=== PATIENT | female | born 1970 | race Caucasian/White ===

== ENCOUNTER 2018-01-27 16:34 | Inpatient (IN) | payer OTHER ==
[~2018-01-27] VITALS: Ht 172.7 cm; Wt 84.8 kg
--- NOTE | 2018-01-27 16:50 | ED GENERAL ADULT ---
History of Present Illness General Chief Complaint: General Adult Stated Complaint: PT IS HERE FROM [facility] FOR [facility] DURHAM Source: patient Exam Limitations: no limitations Vital Signs & Intake/Output Vital Signs & Intake/Output Vital Signs Date Time Temp Pulse Resp B/P B/P Pulse O2 O2 Flow FiO2 Mean Ox Delivery Rate 01/27 1946 98.1 85 18 102/58 97 Room Air 01/27 1945 98.1 85 18 102/58 01/27 1804 Room Air 01/27 1803 75 18 100/60 Room Air 01/27 1745 75 18 100/60 01/27 1637 98.4 73 18 89/69 96 Room Air Room Air Allergies Coded Allergies: strawberry (Intermediate, DIARRHEA 01/27/18) Triage Note: PT TO ED FOR [facility], PT ARRIVES TO TRIAGE NOTED WITH YELLOW SCLERA, AND SKIN. BLOODWORK INCLUDING AMMONIA DRAWN IN TRIAGE. Triage Nurses Notes Reviewed? yes Onset: Abrupt Duration: day(s): Timing: recent history HPI: 47 year old female presents to the emergency department from [facility] for retention of fluids from the abdomin to her feet. She states this has been getting worse over the past 2 weeks. She did have an endoscopy that revieled 5 ulcers. She is been [facility] for 5 days and feels as though her symptoms are worsening. Past History Travel History Traveled to [place] past 21 day No Medical History Any Pertinent Medical History? see below for history Neurological: SEIZURE X 2, "DETOXING MYSELF". 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 No Review of Systems Review of Systems Constitutional: Reports: see HPI. Denies: fever. EENTM: Reports: no symptoms. Denies: blurred vision, double vision, visual changes. Respiratory: Reports: no symptoms. Denies: short of breath. Cardiovascular: Reports: see HPI, edema. Denies: chest pain. GI: Reports: see HPI, bloating, distention. Genitourinary: Reports: no symptoms. Musculoskeletal: Reports: no symptoms. Skin: Reports: see HPI, jaundice. Neurological/Psychological: Reports: no symptoms. Hematologic/Endocrine: Reports: no symptoms. Immunologic/Allergic: Reports: no symptoms. Physical Exam Physical Exam General Appearance: alert, awake, anxious Head: normal appearance, active bleeding Eyes: Bilateral: normal appearance, PERRL, EOMI, other (JAUNDICE). Ears, Nose, Throat: normal ENT inspection Neck: full range of motion Respiratory: lungs clear Cardiovascular: regular rate/rhythm Peripheral Pulses: 4+ radial (R), 4+ radial (L) Gastrointestinal: distention, tenderness Back: normal inspection Extremities: pedal edema Neurologic/Psych: no motor/sensory deficits, awake, alert, oriented x 3 Skin: jaundice Core Measures ACS in differential dx? No CVA/TIA Diagnosis: No Sepsis Present: No Sepsis Focused Exam Completed? No Progress Differential Diagnoses I considered the following diagnoses in my evaluation of the patient: [ Spontaneous bacterial peritonitis, intra-abdominal infection, pancreatitis, alcoholic hepatitis, hepatic encephalopathy, hypoalbuminemia,] Plan of Care: Orders Procedure Date/time Status Regular Diet 01/28 B Active Patient Data 01/27 1931 Active BLOOD CULTURE 01/[address] ABD & PELVIS W IV CONTRAST 01/27 1922 Active ED Holding Orders 01/27 1910 Active Admit to inpatient 01/27 1910 Active Vital Signs 01/27 1910 Active Code Status 01/27 1910 Active Intake & Output 01/27 1741 Active Add-on Test (ER Only) 01/27 1711 Active PARTIAL THROMBOPLASTIN TIME 01/27 1645 Complete PROTHROMBIN TIME 01/27 1645 Complete CIWA 01/27 1644 Active URINE DRUGS OF ABUSE 01/27 1644 Complete AMMONIA 01/27 1644 Complete MAGNESIUM 01/27 1644 Complete HEPATIC FUNCTION PANEL 01/27 1644 Complete ETHANOL 01/27 1644 Complete CBC WITHOUT DIFFERENTIAL 01/27 164 Complete BASIC METABOLIC PANEL 01/27 1644 Complete Laboratory Tests 01/27/18 1940: Urine Opiates Screen < 100, Methadone Screen < 40, Barbiturate Screen < 60, Ur Phencyclidine Scrn < 6.00, Amphetamines Screen < 100, U Benzodiazepines Scrn < 85, Urine Cocaine Screen < 50, Urine Cannabis Screen < 5.00 01/27/18 1645: Anion Gap 8, Estimated GFR > 60, BUN/Creatinine Ratio 12.5, Glucose 104 H, Calcium 7.5 L, Magnesium 2.2, Total Bilirubin 15.5 H, Direct Bilirubin 13.9 H , AST 92 H, ALT 45, Alkaline Phosphatase 289 H, Ammonia 33 H, Total Protein 4.8 L, Albumin 2.1 L, PT 22.0 H, INR 2.00 H, APTT 36, CBC w Diff MAN DIFF ORDERED, RBC 3.37 L, MCV 102.8 H, MCH 34.3 H, MCHC 33.3, RDW 21.3 H, MPV 8.9 , Segmented Neutrophils 79 H, Band Neutrophils 5, Lymphocytes 7 L, Monocytes 9 , Platelet Estimate VERIFIED BY SMEAR, Anisocytosis 1+, Target Cells FEW, Fld Total RBCs Counted 100, Serum Alcohol < 10.0 01/27/18 1644: APTT Cancelled Microbiology 01/27 1950 BLOOD: Blood Culture - RECD 01/28 1940 BLOOD: Blood Culture - RECD Initial ED EKG: none Departure Departure Disposition: STILL A PATIENT Condition: Stable Clinical Impression Primary Impression: Alcoholic hepatitis Secondary Impressions: Coagulopathy, Liver failure Referrals: Patient Has No Primary Care Dr (PCP/Family) Departure Forms: Customer Survey General Discharge Information Admission Note Spoke With: Vernon Mulligan MD Documentation of Exam: Documentation of any treatments & extenuating circumstances including Concerns Regarding Discharge (functional status, medication knowledge or non-compliance, living conditions, etc.) that warrant an admission rather than observation: [The patient needs admission for IV antiemetics, IV fluids, GI consultation, further imaging studies, review of her medication list-it is unclear why she is clinically deteriorating despite abstinence.] Critical Care Note Critical Care Note Critical Care Time: non-applicable
[2018-01-27 17:02] LABS: HEMATOCRIT 34.7 % (37-47); MEAN CORPUSCULAR HGB 34.3 PG (27.0-31.0); MEAN CORPUSCULAR HGB CONC 33.3 G/DL (33.0-37.0); MEAN CORPUSCULAR VOLUME 102.8 FL (81.0-99.0); MEAN PLATELET VOLUME 8.9 FL (7.4-10.4); PLATELET COUNT 233 /CUMM (130-400); RBC DISTRIBUTION WIDTH 21.3 % (11.5-14.5); RED BLOOD CELL CT 3.37 /CUMM (4.20-5.40); WHITE BLOOD CELL COUNT 22.3 /CUMM (4.8-10.8)
[2018-01-27 17:45] VITALS: BP 100/60
[2018-01-27 17:46] LABS: PTT 36 SEC (25-37)
--- NOTE | 2018-01-27 18:21 | ULTRASOUND REPORT ---
EXAMINATION: US ABDOMEN LIMITED CLINICAL INFORMATION: Abdominal distention and jaundice. Evaluate for ascites. COMPARISON: None TECHNIQUE: Real-time imaging of the right upper quadrant abdominal viscera. FINDINGS: Scanning in the 4 quadrants of the abdomen demonstrates trace ascites in the left upper quadrant and right upper quadrant. Hepatomegaly is partially imaged. IMPRESSION: Trace ascites in the upper quadrants.
[2018-01-27 19:45] VITALS: BP 102/58
--- NOTE | 2018-01-27 19:55 | History & Physical ---
Selwyn Cardoza 01/27/181953: General Information and HPI MD Statement: I have seen and personally examined JULIO CESAR THORNTON and documented this H&P. The patient is a 47 year old F who presented with a patient stated chief complaint of swelling. History of Present Illness: Patient is a 47 year old female with past medical history significant for alcohol dependence who presented to the ED with a cheif complaing of worsening lower extremity edema. Patient is coming from [facility] where she joined 11 days ago and noticed that 4 days prior to admission she has had worsening lower extremity edema and abdominal distention. Patient recently worked up at [facility] ([place]) on 01/04/[address]/MRI/MRCP/RUQUS demonstrated her hepatomegaly, mild common bile duct narrowing, gall baldder thickening and trace pleural effusion. Patient has a history of 2 seizures in December 2017 when she attempted to self detoxify herself. She had a recent endoscopy with her GI physician demonstrating 5 gastric ulcers. Patient has a cough on admission that is mildly productive and she states it is due to sick contact on her [facility]. Otherwise she denies nausea, vomiting, diarrhea, chest pain, shortnes of breath, fevers, chills or urinary symptoms. She does use a nebulizer at home but denies a diagonosis of COPD or asthma. 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 Cancer (Grandma-Stomach, Grandpa- Lung) Note: Paperwork from [facility] present on admission. Copies made for chart. Refer for further information. Patient went outside in ED for a cigarette and had fallen Allergies/Medications Allergies: Coded Allergies: strawberry (Intermediate, DIARRHEA 01/27/18) Past History Travel History Traveled to [place] past 21 day No Medical History Neurological: SEIZURE X 2, "DETOXING MYSELF". 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 Exam & Diagnostic Data Last 24 Hrs of Vital Signs/I&O Vital Signs Date Time Temp Pulse Resp B/P B/P Pulse O2 O2 Flow FiO2 Mean Ox Delivery Rate 01/27 2154 98.5 87 20 100/70 98 01/27 2108 71 18 110/72 100 Room Air 01/27 194 98.1 85 18 102/58 97 Room Air 01/27 194 98.1 85 18 102/58 01/27 1804 Room Air 01/27 1803 75 18 100/60 Room Air 01/27 1745 75 18 100/60 01/27 1637 98.4 73 18 89/69 96 Room Air Room Air Physical Exam General Appearance Alert, Oriented X3, Cooperative Skin Jaundiced Skin Temp/Moisture Exam: Warm/Dry Sepsis Skin Exam (color): Jaundiced HEENT scleral icterus Neck Supple, No JVD Cardiovascular Normal S1, Normal S2 Lungs wheezing bilaterally; mild rales in bilateral lower lung bases Abdomen mild distention and tenderness to palpation; midl hepatomegaly; normal bowel sounds; Neurological Normal Gait, Normal Speech, Strength at 5/5 X4 Ext, Normal Tone, Sensation Intact Extremities +2 Edema in bilateral lower extremities Vascular Normal Pulses Last 24 Hrs of Labs/Lino: Laboratory Tests 01/27/181939: Urine Opiates Screen < 100, Methadone Screen < 40, Barbiturate Screen < 60, Ur Phencyclidine Scrn < 6.00, Amphetamines Screen < 100, U Benzodiazepines Scrn < 85, Urine Cocaine Screen < 50, Urine Cannabis Screen < 5.00, Urine Color FRANCISCO, Urine Clarity HAZY H, Urine pH 6.5, Ur Specific [place] 1.015, Urine Protein NEG, Urine Ketones NEG, Urine Nitrite NEG, Urine Bilirubin POS@ICTO H, Urine Urobilinogen 0.2, Ur Leukocyte Esterase NEG, Ur Microscopic SEDIMENT EXAMINED, Urine RBC FEW H, Urine WBC 5-10 H, Ur Epithelial Cells FEW, Urine Bacteria MANY H, Urine Hemoglobin NEG, Urine Glucose 100 H 01/27/18 1645: Anion Gap 8, Estimated GFR > 60, BUN/Creatinine Ratio 12.5, Glucose 104 H, Calcium 7.5 L, Magnesium 2.2, Total Bilirubin 15.5 H, Direct Bilirubin 13.9 H , AST 92 H, ALT 45, Alkaline Phosphatase 289 H, Ammonia 33 H, Total Protein 4.8 L, Albumin 2.1 L, PT 22.0 H, INR 2.00 H, APTT 36, CBC w Diff MAN DIFF ORDERED, RBC 3.37 L, MCV 102.8 H, MCH 34.3 H, MCHC 33.3, RDW 21.3 H, MPV 8.9 , Segmented Neutrophils 79 H, Band Neutrophils 5, Lymphocytes 7 L, Monocytes 9 , Platelet Estimate VERIFIED BY SMEAR, Anisocytosis 1+, Target Cells FEW, Fld Total RBCs Counted 100, Serum Alcohol < 10.0 01/27/18 1644: APTT Cancelled Microbiology 01/27 2138 LOWER RESP: Respiratory Culture - ORD 01/27 2138 LOWER RESP: Gram Stain - ORD 01/27 1950 BLOOD: Blood Culture - RECD 01/28 1940 URINE ROUT: Legionella Antigen - RES 01/28 1940 URINE ROUT: Streptococcus pneumoniae Antigen (M - RES 01/28 1940 URINE ROUT: Urine Culture - RES 01/28 1940 BLOOD: Blood Culture - RECD Assessment/Plan Assessment: 47 year old female with PMH of alcohol dependence, history of seizures x2 in december after self-detox presented with fluid retention in abdomen to her feet worsening in past 2 weeks. Recent endoscopy demosntrating 5 ulcers. Patient from [facility] for detoxification had swelling of abdomen/lower extremities that started 4 days ago. Recent discharge from [facility] for simialar complaints where she had a CT, MRI/MRCP and RUQ US done demonstrating 3mm narrowing common bile duct, trace ascites, mild gallbladder thickening, alcoholic hepatitis enlarged liver. EMERGENCY DEPARTMENT: NOTE: Patient went outside to have a cigarette and was stated to have tripped; no injuries reported or seen on assessment. Vitals: 98.4, 73, 18, 89/69, 96% RA Labs: WBC 22.3, Hgb 11.6, Hct: 34.7, MCV 102.8, Plt 233 Chemistry: Na 130, K 4.3, Cl 104, CO2 19, BUN 5, Cr 0.4 Alcium 7.5 Total bilirubin 15.5, Direct 13.9, AST 92, ALT 45, ALK Phos 289, Ammonia 33 Total Protein 4.8m Albumin 2.1 Coags: INR 2.00 Utox: Alcohol < 10; negative for illicit drugs RUQ US: No convincing change from 01/12/2018 with persistent moderate right-sided pleural effusion and associated right basilar airspace opacity.. CT ABDOMEN IMPRESSION: 1. Abdominal ascites. Generalized anasarca. 2. Low-attenuation of liver parenchyma. Hepatomegaly. 3. Cholelithiasis. No bile duct dilatation. 4. Diverticulosis of colon. No diverticulitis. There is diffuse fatty replacement at the submucosa which can be seen with prior chronic inflammatory change of the bowel. There is no acute change of bowel. 5. Right pleural effusion with right basilar dependent atelectasis. PROBLEM LIST: 1. Bilateral Lower Extremity Edema/Volume Overload 2. Leukocytosis 3. Alcoholic Hepatitis/Alcohol Dependence 4. Trace Ascites Bilateral Lower Extremity Edema/Volume Overload Patient with +4 pitting edema in bilateral lower extremities to the foot. Noticed 4 days ago, denies previous history of this significance. History of alcoholic hepatitis may be contributory to patients edema. Patient does not ahve a history of portal hypertension. Possible alcohol cardiomyopathy? * Lasix 20 IV - will see how patient responds; blood pressures run low * Lower Extremity Doppler - rule out DVT * ECHO * Pro-BNP * PT evaluation in AM Leukocytosis Patient presenting with a white count of 22.3, afebrile on admission. She has a mild productive cough stating she has had sick contact present at her campus at [facility]. Patient does not show signficant signs of SBP. Trace pleural effusions on previous and current imaging. * Follow Up CXR * Monitor CBC and for fevers * Ceftriaxone + Azithromax to cover for any infectious process at this time * Follow up strep pneumo/legionella antigen; urine culture; lower respiratory culture; blood cultures x 2 Alcoholic Hepatitis/Alcohol Abuse Patient with a significant drinking history claims she last drank 1 month ago and usually drinks whiskey, vodka and tequilla. Coming from [facility] started 11 days ago. History of 2 seizures trying to self detoxify in December. Worked up at [facility] on 01/04/18 admission for alcoholic hepatitis. Patient significantly jaundiced on examination. Mild abdominal distention. +4 pitting edema bilateral lower extremities. Utox < 10 alcohol. * CIWA Scores * Fall Precautions - patient had fall going to smoke in ED * Social Work consulted * Continue to monitor LFTs and INR * Consider GI evaluation in the morning * Records from her previous hospitalization which showed that she was tested for ceruloplasmin, alpha 1 antitrypsin- [facility] Trace Ascites Patient with history of alcoholic hepatitis recent admission to [facility] for work up incluiding CT/MRI/MRCP/RUQUS claims she has noted abdominal distention. RUQ US at [place] demonstrates trace ascites in upper qudrants. Abdominal CT shows ascites, hepatomegaly, cholelithiasis, diverticulosis and R. pleural effusion. Patient came from [facility] detoxification 11 days ago and noticed abdominal/lower extremity edema 4 days ago. * Continue to monitor LFTs and INR * Consider GI evaluation in the morning * Records from previous hospitalization which showed that she was tested for ceruloplasmin, alpha 1 antitrypsin - [facility] Code: Full Code DVT PPx: ALPS ONLY - INR of 2.00 Diet: NPO at midnight for possible intervention in morning As Ranked By This Provider Problem List: 1. Coagulopathy 2. Alcoholic hepatitis Core Measures/Misc (01/18) Acute Coronary Syndrome ACS Diagnosis: No Congestive Heart Failure Congestive Heart Failure Diagnosis No Cerebrovascular Accident CVA/TIA Diagnosis: No VTE (View Protocol) VTE Risk Factors Age>40 No Mechanical VTE Prophylaxis d/t N/A MechProphylax Ordered No VTE Pharm Prophylaxis d/t Coagulopathy Sepsis (View protocol) Sepsis Present: No If YES complete Sepsis Event Note If YES complete Sepsis Event Note Abdullahi SAUNDERS,[facility] 01/27/18 2321: General Information and HPI Allergies/Medications Home Med list Acetaminophen (Tylenol Arthritis) 650 MG TABLET.ER 1 TAB PO TID PRN PAIN ( Reported) Albuterol Sulfate 1.25 MG/3 ML VIAL.NEB 1 Vial INH/TRISHA Q4-6 PRN SOB (Reported ) Cholecalciferol (Vitamin D3) (Vitamin D3) 5,000 UNIT TABLET 1 TAB PO WEEKLY SUPPLEMENT (Reported) Cyanocobalamin (Vitamin B-12) 1,000 MCG TABLET 1 TAB PO DAILY VITAMIN ( Reported) Hydroxyzine Pamoate (Vistaril) 50 MG CAPSULE 1 CAP PO QPM ANXIETY (Reported) Ipratropium [place] 0.2 MG/ML (0.02 %) SOLUTION 1 Vial INH/TRISHA 4 TIMES/DAY SOB (Reported) Melatonin 3 MG TABLET 2 TAB PO QPM INSOMIA (Reported) Mirtazapine (Remeron) 15 MG TABLET 1 TAB PO QPM INSOMIA (Reported) Multivitamin (Multivitamins) 1 EACH CAPSULE 1 TAB PO DAILY SUPPLEMENT ( Reported) Nadolol 20 MG TABLET 1 TAB PO QAM LIVER (Reported) Pantoprazole Sodium 40 MG TABLET.DR 1 TAB PO DAILY GASTRITIS (Reported) Vitamin B Complex/Folic Acid (B-Complex Tablet) 0.4 MG TABLET 1 TAB PO DAILY SUPPLEMENT (Reported) Core Measures/Misc (01/18) VTE (View Protocol) No Mechanical VTE Prophylaxis d/t N/A MechProphylax Ordered No VTE Pharm Prophylaxis d/t Coagulopathy Sepsis (View protocol) If YES complete Sepsis Event Note If YES complete Sepsis Event Note Resident Review Statement Resident Statement: examined this patient, discussed with international guest coordinator, agreed with international guest coordinator Other Findings: The patient is 47-year-old female past medical 6 history significant for alcohol abuse disorder. Patient was recently admitted to [facility] ( [place]) on 01/04/18 for alcohol detox and was discharged to [facility]. She was extensively worked up for ongoing liver dysfunction. She underwent CT/MRCP/ right upper quadrant ultrasound which showed marked hepatomegaly with severe hepatic steatosis, no focal lesions identified, mild narrowing of the common bile duct She recently underwent endoscopy as well showing 5 gastric ulcers. Patient is coming from [facility] facility complaining of bilateral lower extremity edema to a point which is affecting her gait. She also reports productive cough ongoing for past couple of days. The sputum is white in color. She reports several sick contacts around her at [facility]. Basilar edema and sudden in onset ongoing for past few days. She received Dr. Gould at the facility however her potassium was low hence it was stopped. Patient does not carry the diagnosis of COPD or asthma however uses nebulizer every now and then. -Vitals on presentations blood pressure 89/69 however repeat reading shows 100/ 60. -Admission labs see interns note Patient is being admitted to general medicine floor for treatment and evaluation of following conditions #Bilateral lower extremity edema/anasarca The edema is acute in onset. 3+ edema bilaterally lower extremities, extended up to thighs and sacral edema also present. As per imaging in the previous hospital patient does not have portal hypertension. Possible causes can be renal disease unlikely in setting of normal GFR and creatinine, heart failure in setting of alcohol abuse there is possibility of dilated cardiomyopathy, more so can be secondary to early hepatic cirrhosis? and hypoalbuminemia. We do need to rule out DVT with such an acute onset -Lasix 20 mg IV for now in setting of soft blood pressure -Lower extremity ultrasound to rule out DVT -Echocardiogram #Leukocytosis She is presenting with elevated WBC count of 22 and 5 bands. Initially I was concerned about SBP however on examination abd is not distended but soft, mild tenderness on examination and no ascites appreciated on physical examination ultrasound only showed trace ascites. Patient has ongoing productive cough and reports sick contacts. There is possibility of pneumonia community-acquired. Wheezes and decreased breath sounds on examination Patient denies any urinary symptoms, no rashes or skin changes appreciated other than jaundice. -Patient does not appear to be septic she does have leukocytosis and had low blood pressure on presentation (autocuff) but a low blood pressure can be secondary to underlying liver process and blood pressure improved without any fluid resuscitation. Patient reported her baseline is around 110 systolic -Monitor fever and WBC curve -Blood cultures 2, urine culture, sputum culture -Chest x-ray -Urine strep and Legionella antigen -Willl cover empirically with ceftriaxone and Zithromax for now -TRC/ Duonebs #Macrocytic anemia In setting of alcohol abuse -Continue multivitamin and folate supplementation #Alcoholic hepatitis/hyperbilirubinemia/coagulopathy Patient is clearly jaundiced on presentation. Has elevated bilirubin and direct in total, INR is also elevated AST is greater than ALT. -Maddrey's discrimination function 66 showing poor prognosis, can benefit from steroids -However her bilirubin and transaminases have improved from her last hospital visit. -MELD-NA score today 27-32% 90 day mortality -Continue to monitor LFTs and INR -Consider GI evaluation in the morning -There are some records from her previous hospitalization which showed that she was tested for ceruloplasmin, alpha 1 antitrypsin and SPEP, LYDIA ASMA, AMA, IgG4 levels. However results are not included in the packet, request records in the a.m. #Hyponatremia Patient appears to be fluid overloaded so hyponatremia is most likely secondary to hypervolermia, which may be compounded by underlying liver dysfunction -Diuresing with Lasix as tolerated by blood pressure -Monitor sodium levels #Hypoalbuminemia in setting of liver dysfunction secondary to alcohol abuse -Consider albumin if hypotensive #Hypocalcemia In setting of hypoalbuminemia -Corrected calcium is 9 #Status post mechanical fall No loss of consciousness no prodrome nor seizure -Fall precautions patient went outside and has in ED to smoke cigarette and tripped however did not hurt anything. -PT eval DVT prophylaxis with ALPS only in setting of supratherapeutic INR/regular diet/ full code Vernon Mulligan MD 01/28/18 0507: Core Measures/Misc (01/18) Sepsis (View protocol) If YES complete Sepsis Event Note If YES complete Sepsis Event Note Attending MD Review Statement Attending Statement Attending MD Statement: examined this patient, discuss w/resident/PA/DIRECTOR CLOUD TRANSFORMATION, agreed w/resident/PA/DIRECTOR CLOUD TRANSFORMATION Attending Assessment/Plan: Patient is seen and examined independently by me. Care plan discussed with medical transport specialist and/or resident. I agree with the physical exam findings and plan of care as outlined above with the following changes and additions. 47 yo F with history of alcohol abuse went rehab, seizure, gastric ulcer, alcoholic hepatitis, jaundice, fatty liver, hepatomegaly, presented with increasing bilateral LE edema and abdominal distension. Her main concern is bilateral LE edema for 4-5 days. No calf tenderness. She has been sitting about 10 hrs a day at rehab. Patient also has abdominal distension but no abdominal pain, nausea, vomiting or diarrhea. She has SOB with cough but no chest pain. On exam she is found to have volume overload with decreased breath sound in lung base, sacral edema, bilateral 2+ LE edema up to knees with edema in dependent side of her thighs. She is afebrile. WBC 22.3. INR 2.0. Na 130, Cr 0.4. T bili 15.5, D bili 13.9, AST 92, ALT 45, AP 289 with overall LFT numbers are trending down. UA has 5-10 WBC and many bacteria. Urine tox screen negative. CXR shows moderate right pleural effusion. US abdomen shows trace ascites. CT abdomen/pelvis shows small right pleural effusion. Enlarged liver with fatty changes. Small gallstones with no bile duct dilatation. Diverticulosis but no diverticulitis. Generalized anasarca in abdominal wall. Patient is admitted as inpatient to [facility] for volume overload and anasarca with hyponatremia, UTI, r/o pneumonia. Give Lasix 20 mg IV x1 for follow urine output. Check cultures. Start rocephin and Zithromax. Check Doppler of bilateral LE. Signed: Vernon Mulligan MD FACP
--- NOTE | 2018-01-27 20:35 | CT SCAN REPORT ---
EXAMINATION: CT ABDOMEN AND PELVIS WITH CONTRAST CLINICAL INFORMATION: EtOH hepatitis. Abdominal distention. Concern for abscess. COMPARISON: Ultrasound abdomen 01/27/2018. TECHNIQUE: Multidetector volumetric imaging was performed of the abdomen and pelvis following IV administration of 95 mL of Optiray 320 intravenous contrast. Sagittal and coronal reformatted images were obtained on the technologist's workstation. DLP: 640.48 mGy-cm FINDINGS: LUNG BASES: There is a small right pleural effusion. There is atelectasis of the right lung base. LIVER, GALLBLADDER, AND BILIARY TREE: The liver is enlarged. The right lobe of liver measures 27 cm superior-inferior. There is diffuse low attenuation of liver parenchyma due to fatty change. There are multiple small gallstones layering dependently in the gallbladder. There is no bile duct dilatation. There is no calcified stone seen within the bile ducts. PANCREAS: Unremarkable. SPLEEN: Unremarkable. ADRENAL GLANDS: Unremarkable. KIDNEYS AND URETERS: The kidneys are normal in size, shape, and attenuation. No hydronephrosis, hydroureter, or calculi seen. No perinephric stranding. BLADDER: Unremarkable. GASTROINTESTINAL TRACT: There is diverticulosis of the left colon and sigmoid. There is no diverticulitis. There is no bowel wall thickening or edema. There is fatty change of the submucosa of the right colon. This can be seen in chronic inflammatory changes of the colon. The appendix is not seen. The small bowel loops are unremarkable. ABDOMINAL WALL: No ventral wall hernia. There is mild generalized anasarca in the subcutaneous tissue. LYMPH NODES: Normal. VASCULAR: Unremarkable. PELVIC VISCERA: The uterus is anteverted. There is no adnexal abnormality. OSSEOUS STRUCTURES: Degenerative disc height narrowing, endplate spurring and facet joint arthrosis at the lumbosacral junction. IMPRESSION: 1. Abdominal ascites. Generalized anasarca. 2. Low-attenuation of liver parenchyma. Hepatomegaly. 3. Cholelithiasis. No bile duct dilatation. 4. Diverticulosis of colon. No diverticulitis. There is diffuse fatty replacement at the submucosa which can be seen with prior chronic inflammatory change of the bowel. There is no acute change of bowel. 5. Right pleural effusion with right basilar dependent atelectasis.
[2018-01-27] MEDS ORDERED: MULTIVITAMINS1 EAC8 PO (21:45)
[2018-01-27] MEDS ORDERED: REMERON15 M2 PO (21:46)
[2018-01-27] MEDS ORDERED: PANTOPRAZOLE SO40 M1 PO (21:46)
[2018-01-27] MEDS ORDERED: MELATONIN3 M4 PO (21:46)
[2018-01-27] MEDS ORDERED: IPRATROPIU0.2 MG/1 M INH/SOL (21:47)
[2018-01-27] MEDS ORDERED: ALBUTEROL1.25 MG/1 INH/SOL (21:47)
[2018-01-27] MEDS ORDERED: B-COMPLEX TABL0.4 MG PO (21:48)
[2018-01-27] MEDS ORDERED: VITAMIN D35000 UNI1 PO (21:51)
[2018-01-27] MEDS ORDERED: TYLENOL ARTHRI650 M1 PO (21:53)
[2018-01-27] MEDS ORDERED: VISTARIL50 M1 PO (21:53)
[2018-01-27 21:54] VITALS: BP 100/70
[2018-01-27] MEDS ORDERED: NADOLOL20 M1 PO (21:55)
[2018-01-27 22:00] VITALS: BP 110/72
--- NOTE | 2018-01-27 23:49 | RADIOLOGY REPORT ---
EXAMINATION: XR CHEST CLINICAL INFORMATION: Cough. COMPARISON: None TECHNIQUE: 2 views of the chest were obtained. FINDINGS: There is a moderate volume right pleural effusion. No left pleural effusion. Hazy opacity at the right lung base of small infiltrate or atelectasis. The left lung is clear. There is no pulmonary vascular congestion. The heart size is normal. The cardiac and mediastinal contours are normal. IMPRESSION: Moderate volume right pleural effusion. Small right basilar infiltrate or atelectasis.
[2018-01-28 06:00] VITALS: BP 110/58
--- NOTE | 2018-01-28 07:10 | PN- Housestaff ---
Kishan Sheth 01/28/18 0708: Subjective Follow-up For: Lower extremity edema Alcoholic hepatitis/alcohol dependence Subjective: Patient seen resting comfortably in bed. She reports that she had just woken up and had few complaints. She reported that the swelling in her lower extremities is not painful, but "annoying". She denied nausea, vomiting, diarrhea or fever and chills overnight. Review of Systems Constitutional: Denies: chills, fever, weakness. Objective Last 24 Hrs of Vital Signs/I&O Vital Signs Date Time Temp Pulse Resp B/P B/P Pulse O2 O2 Flow FiO2 Mean Ox Delivery Rate 01/28 600 98.2 83 20 110/58 01/28 0600 98.2 83 20 110/58 96 Room Air 01/28 0110 97 Room Air 01/27 2200 98.1 71 18 110/72 01/27 2154 98.5 87 20 100/70 98 01/27 2108 71 18 110/72 100 Room Air 01/27 1946 98.1 85 18 102/58 97 Room Air 01/27 1945 98.1 85 18 102/58 01/27 1804 Room Air 01/27 1803 75 18 100/60 Room Air 01/27 1745 75 18 100/60 01/27 1637 98.4 73 18 89/69 96 Room Air Room Air Intake & Output 01/28 0800 01/28 0000 01/27 1600 Intake Total 360 Output Total Balance 360 Intake, Oral 360 Output, Urine Patient 84.822 kg Weight Weight Reported by Patient Measurement Method Physical Exam General Appearance: Alert, Oriented X3, Cooperative, No Acute Distress Cardiovascular: Regular Rate, Normal S1, Normal S2 Extremities: 2+ pitting edema BLE's Current Medications: Current Medications Sig/[place] Start time Last Medication Dose Route Stop Time Status Admin Acetaminophen 650 MG TID PRN 01/27 2200 DC PO Albuterol Sulfate 3 ML Q6 PRN 01/27 2145 AC 01/28 INH 0055 Azithromycin 500 MG DAILY 01/28 900 AC Sodium Chloride 250 ML IV Ceftriaxone Sodium 1,000 MG DAILY 01/28 900 AC IV Folic Acid 1 MG DAILY 01/28 900 AC PO Furosemide 20 MG ONCE ONE 01/27 2245 DC 01/28 IV 01/27 2246 0109 Hydroxyzine HCl 50 MG QPM PRN 01/27 2200 AC PO Ipratropium [place] 2.5 ML 4 TIMES/DAY 01/28 2148 AC 01/28 INH 0055 Melatonin 6 MG QPM 01/28 2100 AC PO Melatonin 0 .STK-MED ONE 01/28 0029 DC PO Melatonin 5 MG AT BEDTIME 01/28 0015 AC 01/28 PO 0028 Mirtazapine 15 MG QPM 01/28 2100 AC PO Omeprazole 40 MG DAILY AC 01/28 0700 AC PO Last 24 Hrs of Lab/Lino Results Last 24 Hrs of Labs/Mics: Laboratory Tests 01/27/18 1940: Urine Opiates Screen < 100, Methadone Screen < 40, Barbiturate Screen < 60, Ur Phencyclidine Scrn < 6.00, Amphetamines Screen < 100, U Benzodiazepines Scrn < 85, Urine Cocaine Screen < 50, Urine Cannabis Screen < 5.00, Urine Color FRANCISCO, Urine Clarity HAZY H, Urine pH 6.5, Ur Specific Mcgrath 1.015, Urine Protein NEG, Urine Ketones NEG, Urine Nitrite NEG, Urine Bilirubin POS@ICTO H, Urine Urobilinogen 0.2, Ur Leukocyte Esterase NEG, Ur Microscopic SEDIMENT EXAMINED, Urine RBC FEW H, Urine WBC 5-10 H, Ur Epithelial Cells FEW, Urine Bacteria MANY H, Urine Hemoglobin NEG, Urine Glucose 100 H 01/27/18 1645: Anion Gap 8, Estimated GFR > 60, BUN/Creatinine Ratio 12.5, Glucose 104 H, Calcium 7.5 L, Magnesium 2.2, Total Bilirubin 15.5 H, Direct Bilirubin 13.9 H , AST 92 H, ALT 45, Alkaline Phosphatase 289 H, Ammonia 33 H, Pro-B- Natriuretic Pept 182 H, Total Protein 4.8 L, Albumin 2.1 L, PT 22.0 H, INR 2.00 H, APTT 36, CBC w Diff MAN DIFF ORDERED, RBC 3.37 L, MCV 102.8 H, MCH 34.3 H, MCHC 33.3, RDW 21.3 H, MPV 8.9, Segmented Neutrophils 79 H, Band Neutrophils 5, Lymphocytes 7 L, Monocytes 9, Platelet Estimate VERIFIED BY SMEAR, Anisocytosis 1+, Target Cells FEW, Fld Total RBCs Counted 100, Serum Alcohol < 10.0 01/27/18 1644: APTT Cancelled Microbiology 01/27 2330 LOWER RESP: Respiratory Culture - RECD 09/26 2330 LOWER RESP: Gram Stain - RECD 01/27 1950 BLOOD: Blood Culture - RECD 01/28 1940 URINE ROUT: Legionella Antigen - RES 01/28 1940 URINE ROUT: Streptococcus pneumoniae Antigen (M - RES 01/28 1940 URINE ROUT: Urine Culture - RES 01/28 1940 BLOOD: Blood Culture - RECD Assessment/Plan Assessment: 47 year old female with PMH of alcohol dependence, history of seizures x2 in december after self-detox presented with fluid retention in abdomen to her feet worsening in past 2 weeks. Endoscopy reports obtained from outside hospital, no esophageal varices found, did indicate 5 gastric ulcers. PROBLEM LIST: 1. Bilateral Lower Extremity Edema/Volume Overload 2. Unexplained leukocytosis 3. Alcoholic Hepatitis/Alcohol Dependencein rehab 4. Trace Ascites Plan: -Follow-up GI recommendations, much appreciated fluid Code: Full Code DVT PPx: ALPS ONLY - INR of 2.00 Diet: NPO at midnight for possible intervention in morning Problem List: 1. Alcoholic hepatitis 2. Liver failure 3. Coagulopathy Pain Ratin Pain Location: BLE's Pain Goal: Pain 4 or less Pain Plan: per pathway Tomorrow's Labs & Rationales: cbc & bep Renetta Rdz 01/28/18 1232: Attending MD Review Statement Attending Statement Attending MD Statement: examined this patient, discuss w/resident/PA/SOLAR PROJECT COORDINATION SPECIALIST, agreed w/resident/PA/SOLAR PROJECT COORDINATION SPECIALIST, discussed with family, reviewed EMR data (avail), discussed with nursing, discussed with case mgmt, reviewed images, amended to note Attending Assessment/Plan: 47 yo F with history of alcohol abuse went rehab, seizure, gastric ulcer, alcoholic hepatitis, jaundice, fatty liver, hepatomegaly, presented with increasing bilateral LE edema and abdominal distension. Her main concern is bilateral LE edema for 4-5 days and SOB on exertion. No fevers. Labs and imaging noted. leukocytosis+, ascites with small pleural effusion and generalised anasarca. No fever. INR 2.0 Patient is admitted as inpatient to [facility] for volume overload and anasarca with hyponatremia with unexplained leukocytosis and jaundice with hyperbilirubinemia and elevated INR with alcoholic hepatitis. Monitor off abx. Follow cultures. USG of lower extremity negative for DVT. GI consult. Monitor her clinically and cosnider abx if spikes fever. Monitor labs including LFTs. w/resident/PA/SOLAR PROJECT COORDINATION SPECIALIST, discussed with family, reviewed EMR data (avail), discussed with nursing, discussed with case mgmt, reviewed images, amended to note Attending Assessment/Plan: 47 yo F with history of alcohol abuse went rehab, seizure, gastric ulcer, alcoholic hepatitis, jaundice, fatty liver, hepatomegaly, presented with increasing bilateral LE edema and abdominal distension. Her main concern is bilateral LE edema for 4-5 days and SOB on exertion. No fevers. Labs and imaging noted. leukocytosis+, ascites with small pleural effusion and generalised anasarca. No fever. INR 2.0 Patient is admitted as inpatient to [facility] for volume overload and anasarca with hyponatremia with unexplained leukocytosis and jaundice with hyperbilirubinemia and elevated INR with alcoholic hepatitis. Monitor off abx. Follow cultures. USG of lower extremity negative for DVT. GI consult. Monitor her clinically and cosnider abx if spikes fever. Monitor labs including LFTs. Attending MD Review Statement Attending Statement Attending MD Statement: examined this patient, discuss w/resident/PA/SOLAR PROJECT COORDINATION SPECIALIST, agreed w/resident/PA/SOLAR PROJECT COORDINATION SPECIALIST, discussed with family, reviewed EMR data (avail), discussed with nursing, discussed with case mgmt, reviewed images, amended to note Attending Assessment/Plan: 47 yo F with history of alcohol abuse went rehab, seizure, gastric ulcer, alcoholic hepatitis, jaundice, fatty liver, hepatomegaly, presented with increasing bilateral LE edema and abdominal distension. Her main concern is bilateral LE edema for 4-5 days and SOB on exertion. No fevers. Labs and imaging noted. leukocytosis+, ascites with small pleural effusion and generalised anasarca. No fever. INR 2.0 Patient is admitted as inpatient to [facility] for volume overload and anasarca with hyponatremia with unexplained leukocytosis and jaundice with hyperbilirubinemia and elevated INR with alcoholic hepatitis. Monitor off abx. Follow cultures. USG of lower extremity negative for DVT. GI consult. Monitor her clinically and cosnider abx if spikes fever. Monitor labs including LFTs.
[2018-01-28 09:10] LABS: MEAN CORPUSCULAR HGB CONC 33.5 G/DL (33.0-37.0)
[2018-01-28 09:39] LABS: MEAN CORPUSCULAR HGB 34.1 PG (27.0-31.0); MEAN CORPUSCULAR VOLUME 101.9 FL (81.0-99.0); MEAN PLATELET VOLUME 9.2 FL (7.4-10.4); PLATELET COUNT 218 /CUMM (130-400); RED BLOOD CELL CT 2.88 /CUMM (4.20-5.40); WHITE BLOOD CELL COUNT 19.8 /CUMM (4.8-10.8)
[2018-01-28 10:02] LABS: HEMATOCRIT 29.3 % (37-47)
--- NOTE | 2018-01-28 11:02 | ULTRASOUND REPORT ---
EXAMINATION: US TRIPLEX OF LOWER EXTREMITIES, BILATERAL CLINICAL INFORMATION: New onset bilateral lower extremity edema. Evaluate for deep vein thrombosis. COMPARISON: None TECHNIQUE: Color-flow triplex imaging with spectral analysis and compression Doppler were performed on the lower extremities. FINDINGS: Respiratory variation, normal compression and augmented flow are noted throughout the lower extremities. The visualized common femoral vein, superficial femoral vein, profunda femoral vein, popliteal vein and midcalf peroneal and posterior tibial venous segments show no evidence of deep venous thrombosis. There is no White's cyst. IMPRESSION: No evidence of deep venous thrombosis involving the bilateral lower extremities.
[2018-01-28 12:00] VITALS: BP 110/58
[2018-01-28 12:15] LABS: PT 22.4 SEC (9.4-12.5)
[2018-01-28] MEDS ORDERED: VITAMIN B-121000 MC3 PO (13:13)
[2018-01-28 14:19] VITALS: BP 112/90
--- NOTE | 2018-01-28 16:44 | Cons- Gastroenterology ---
General Information and HPI Consulting Request Date of Consult: 01/28/18 Requested By: Vernon Mulligan MD Reason for Consult: Alcoholic hepatitis, anasarca, increased LFTs. Source of Information: patient, old records Exam Limitations: no limitations History of Present Illness: Ms. Muse is a 47 year old female with a history of etoh abuse who presented to yesterday from rehab with reports of worsening lower extremity swelling and abdominal discomfort. She was recently admitted to the hospital on [place] for alcoholic hepatitis during which time she underwent an extensive GI workup and was ultimately sent to rehabilitation in [place]. She has been in rehab for the past 11 days and while there she was complaining of worsening LE swelling and abdominal distention for which she was sent to ER for furhter evaluation. She has been sober for the past month. She note that she has some abdominal discomfort as well and she states that she had a recent endoscopy during which time she was told that she had 5 gastric ulcers, but while she comes with records from her prior hospitalization with labs, and imaging reports there is no recent EGD. She is iwthout any recent vomiting, diarrhea, rectal bleeding or melena. She does note jaundice, but she denies pruritus. In the ER she was afebrile and hemodynamically stable. She was noted to have increased LFTs and an ultrasound and CAT scan were performed which showed anasarca, but only trace ascites. She has been pancultured start on IV Lasix for diuresis and has also been given a dose of IV ceftriaxone. Allergies/Medications Allergies: Coded Allergies: strawberry (Intermediate, DIARRHEA 01/27/18) Home Med List: Acetaminophen (Tylenol Arthritis) 650 MG TABLET.ER 1 TAB PO TID PRN PAIN ( Reported) Albuterol Sulfate 1.25 MG/3 ML VIAL.NEB 1 Vial INH/TRISHA Q4-6 PRN SOB (Reported ) Cholecalciferol (Vitamin D3) (Vitamin D3) 5,000 UNIT TABLET 1 TAB PO WEEKLY SUPPLEMENT (Reported) Cyanocobalamin (Vitamin B-12) 1,000 MCG TABLET 1 TAB PO DAILY VITAMIN ( Reported) Hydroxyzine Pamoate (Vistaril) 50 MG CAPSULE 1 CAP PO QPM ANXIETY (Reported) Ipratropium [place] 0.2 MG/ML (0.02 %) SOLUTION 1 Vial INH/TRISHA 4 TIMES/DAY SOB (Reported) Melatonin 3 MG TABLET 2 TAB PO QPM INSOMIA (Reported) Mirtazapine (Remeron) 15 MG TABLET 1 TAB PO QPM INSOMIA (Reported) Multivitamin (Multivitamins) 1 EACH CAPSULE 1 TAB PO DAILY SUPPLEMENT ( Reported) Nadolol 20 MG TABLET 1 TAB PO QAM LIVER (Reported) Pantoprazole Sodium 40 MG TABLET.DR 1 TAB PO DAILY GASTRITIS (Reported) Vitamin B Complex/Folic Acid (B-Complex Tablet) 0.4 MG TABLET 1 TAB PO DAILY SUPPLEMENT (Reported) Current Medications: Current Medications Sig/[place] Start time Last Medication Dose Route Stop Time Status Admin Acetaminophen 650 MG TID PRN 01/27 2200 DC PO Albuterol Sulfate 3 ML Q6 PRN 01/27 2145 AC 01/28 INH 0055 Azithromycin 500 MG DAILY 01/28 09 AC Sodium Chloride 250 ML IV Ceftriaxone Sodium 1,000 MG DAILY 01/28 09 AC IV Folic Acid 1 MG DAILY 01/28 09 AC PO Furosemide 20 MG ONCE ONE 01/27 2245 DC 01/28 IV 01/27 224 0109 Hydroxyzine HCl 50 MG QPM PRN 01/27 2200 AC PO Ipratropium [place] 2.5 ML 4 TIMES/DAY 01/27 2148 AC 01/28 INH 0055 Melatonin 6 MG QPM 01/28 2100 AC PO Melatonin 0 .STK-MED ONE 01/28 0029 DC PO Melatonin 5 MG AT BEDTIME 01/28 0015 AC 01/28 PO 0028 Mirtazapine 15 MG QPM 01/28 2100 AC PO Omeprazole 40 MG DAILY AC 01/28 0700 AC PO Past History Travel History Traveled to [place] past 21 day No Medical History Blood Transfusion Hx: Yes Neurological: SEIZURE X 2, "DETOXING MYSELF". EENT: NONE Cardiovascular: NONE Respiratory: NONE Gastrointestinal: GERD Hepatic: NONE Renal: NONE Musculoskeletal: NONE Psychiatric: alcohol dependence Endocrine: NONE Blood Disorders: anemia, LAST TRANSFUSION 12/19 Cancer(s): NONE CONTINUOUS IMPROVEMENT LEAD/Reproductive: NONE Surgical History Surgical History: Psychosocial History Where Do You Live? Other Smoking Status: Former Smoker ETOH Use: alcoholic Illicit Drug Use: denies illicit drug use Review of Systems Review of Systems Constitutional: Denies: no symptoms. EENTM: Denies: no symptoms. Cardiovascular: Denies: no symptoms. Respiratory: Reports: cough. Denies: hemoptysis, orthopnea, short of breath. GI: Reports: see HPI. Genitourinary: Denies: no symptoms. Musculoskeletal: Denies: no symptoms. Skin: Reports: jaundice. Neurological/Psychological: Denies: no symptoms. Hematologic/Endocrine: Denies: no symptoms. Immunologic/Allergic: Denies: no symptoms. All Other Systems: Reviewed and Negative Exam & Diagnostic Data Vital Signs and I&O Vital Signs Date Time Temp Pulse Resp B/P B/P Pulse O2 O2 Flow FiO2 Mean Ox Delivery Rate 01/28 06 98.2 83 20 110/58 01/28 0600 98.2 83 20 110/58 96 Room Air 01/28 0110 97 Room Air 01/27 2200 98.1 71 18 110/72 01/27 2154 98.5 87 20 100/70 98 01/27 2108 71 18 110/72 100 Room Air 01/27 1946 98.1 85 18 102/58 97 Room Air 01/27 1945 98.1 85 18 102/58 01/27 1804 Room Air 01/27 1803 75 18 100/60 Room Air 01/27 1745 75 18 100/60 01/27 1637 98.4 73 18 89/69 96 Room Air Room Air Intake & Output 01/28 1600 01/28 0400 01/27 1600 01/27 0400 01/26 1600 01/26 0400 Intake Total 360 Output Total Balance 360 Intake, Oral 360 Output, Urine Patient 187 lb Weight Weight Reported by Patient Measurement Method Physical Exam General Appearance: well developed/nourished, no apparent distress, alert, awake , comfortable Head: atraumatic, normal appearance Eyes: Bilateral: normal appearance, other (scleral icterus). Ears, Nose, Throat: normal pharynx, normal ENT inspection, hearing grossly normal Neck: normal inspection, supple, full range of motion Respiratory: normal breath sounds, chest non-tender, no respiratory distress Cardiovascular: regular rate/rhythm Gastrointestinal: normal bowel sounds, soft, minimal tenderness to deep palpation, no peritoneal signs Rectal: deferred Extremities: normal inspection, pedal edema Neurologic/Psych: no motor/sensory deficits, awake, alert, oriented x 3 Skin: intact, jaundice Results Pertinent Lab Results: Laboratory Tests 01/28 01/27 0617 1940 Chemistry Sodium Pending Potassium Pending Chloride Pending Carbon Dioxide Pending Anion Gap Pending BUN Pending Creatinine Pending BUN/Creatinine Ratio Pending Total Bilirubin Pending Direct Bilirubin Pending AST Pending ALT Pending Alkaline Phosphatase Pending Total Protein Pending Albumin Pending Coagulation PT Pending INR Pending Hematology CBC w Diff Pending WBC Pending RBC Pending Hgb Pending Hct Pending MCV Pending MCH Pending MCHC Pending RDW Pending Plt Count Pending MPV Pending Toxicology Urine Opiates Screen (>2000 NG/ML) < 100 Methadone Screen (>300 NG/ML) < 40 Barbiturate Screen (>200 NG/ML) < 60 Ur Phencyclidine Scrn (>25 NG/ML) < 6.00 Amphetamines Screen (>1000 NG/ML) < 100 U Benzodiazepines Scrn (>200 NG/ML) < 85 Urine Cocaine Screen (>300 NG/ML) < 50 Urine Cannabis Screen (>50 NG/ML) < 5.00 Urines Urine Color (YEL,AMB,STR) FRANCISCO Urine Clarity (CLEAR) HAZY H Urine pH (5.0 - 8.0) 6.5 Ur Specific Staley (1.001 - 1.035) 1.015 Urine Protein (NEG,<30 MG/DL) NEG Urine Ketones (NEG) NEG Urine Nitrite (NEG) NEG Urine Bilirubin (NEG) POS@ICTO H Urine Urobilinogen (0.1 - 1.0 EU/dl) 0.2 Ur Leukocyte Esterase (NEG) NEG Ur Microscopic SEDIMENT EXAMINED Urine RBC (0 - 5 /HPF) FEW H Urine WBC (0 - 2 /HPF) 5-10 H Ur Epithelial Cells (NONE,FEW) FEW Urine Bacteria (NEG/NONE) MANY H Urine Hemoglobin (NEG) NEG Urine Glucose (N MG/DL) 100 H 01/27 01/27 1645 1644 Chemistry Sodium (137 - 145 mmol/L) 130 L Potassium (3.5 - 5.1 mmol/L) 4.3 Chloride (98 - 107 mmol/L) 104 Carbon Dioxide (22 - 30 mmol/L) 19 L Anion Gap (5 - 16) 8 BUN (7 - 17 mg/dL) 5 L Creatinine (0.5 - 1.0 mg/dL) 0.4 L Estimated GFR (>60 ml/min) > 60 BUN/Creatinine Ratio (7 - 25 %) 12.5 Glucose (65 - 99 mg/dL) 104 H Calcium (8.4 - 10.2 mg/dL) 7.5 L Magnesium (1.6 - 2.3 mg/dL) 2.2 Total Bilirubin (0.2 - 1.3 mg/dL) 15.5 H Direct Bilirubin (< 0.4 mg/dL) 13.9 H AST (14 - 36 U/L) 92 H ALT (9 - 52 U/L) 45 Alkaline Phosphatase (<127 U/L) 289 H Ammonia (9 - 30 umol/L) 33 H Pry-D-Ezhwhhbtrcq Pept (<125 pg/mL) 182 H Total Protein (6.3 - 8.2 g/dL) 4.8 L Albumin (3.5 - 5.0 g/dL) 2.1 L Coagulation PT (9.4 - 12.5 SEC) 22.0 H INR (0.90 - 1.19) 2.00 H APTT (25 - 37 SEC) 36 Cancelled Hematology CBC w Diff MAN DIFF ORDERED WBC (4.8 - 10.8 /CUMM) 22.3 H RBC (4.20 - 5.40 /CUMM) 3.37 L Hgb (12.0 - 16.0 G/DL) 11.6 L Hct (37 - 47 %) 34.7 L MCV (81.0 - 99.0 FL) 102.8 H MCH (27.0 - 31.0 PG) 34.3 H MCHC (33.0 - 37.0 G/DL) 33.3 RDW (11.5 - 14.5 %) 21.3 H Plt Count (130 - 400 /CUMM) 233 MPV (7.4 - 10.4 FL) 8.9 Segmented Neutrophils (42.2 - 75.2 %) 79 H Band Neutrophils (0.0 - 5.0 %) 5 Lymphocytes (20.5 - 51.1 %) 7 L Monocytes (1.7 - 9.3 %) 9 Platelet Estimate (ADEQUATE) VERIFIED BY SMEAR Anisocytosis 1+ Target Cells FEW Other Body Source Fld Total RBCs Counted (%) 100 Toxicology Serum Alcohol (<10 MG/DL) < 10.0 Imaging/Other Studies: SERVICE DATE: 01/27/18-170 EXAM TYPE: US - US-LIMITED ABDOMEN EXAMINATION: US ABDOMEN LIMITED CLINICAL INFORMATION: Abdominal distention and jaundice. Evaluate for ascites. COMPARISON: None TECHNIQUE: Real-time imaging of the right upper quadrant abdominal viscera. FINDINGS: Scanning in the 4 quadrants of the abdomen demonstrates trace ascites in the left upper quadrant and right upper quadrant. Hepatomegaly is partially imaged. IMPRESSION: Trace ascites in the upper quadrants. SERVICE DATE: 01/27/18 EXAM TYPE: CAT - CT ABD & PELVIS W IV CONTRAST EXAMINATION: CT ABDOMEN AND PELVIS WITH CONTRAST CLINICAL INFORMATION: EtOH hepatitis. Abdominal distention. Concern for abscess. COMPARISON: Ultrasound abdomen 01/27/2018. TECHNIQUE: Multidetector volumetric imaging was performed of the abdomen and pelvis following IV administration of 95 mL of Optiray 320 intravenous contrast. Sagittal and coronal reformatted images were obtained on the technologist's workstation. DLP: 640.48 mGy-cm FINDINGS: LUNG BASES: There is a small right pleural effusion. There is atelectasis of the right lung base. LIVER, GALLBLADDER, AND BILIARY TREE: The liver is enlarged. The right lobe of liver measures 27 cm superior-inferior. There is diffuse low attenuation of liver parenchyma due to fatty change. There are multiple small gallstones layering dependently in the gallbladder. There is no bile duct dilatation. There is no calcified stone seen within the bile ducts. PANCREAS: Unremarkable. SPLEEN: Unremarkable. ADRENAL GLANDS: Unremarkable. KIDNEYS AND URETERS: The kidneys are normal in size, shape, and attenuation. No hydronephrosis, hydroureter, or calculi seen. No perinephric stranding. BLADDER: Unremarkable. GASTROINTESTINAL TRACT: There is diverticulosis of the left colon and sigmoid. There is no diverticulitis. There is no bowel wall thickening or edema. There is fatty change of the submucosa of the right colon. This can be seen in chronic inflammatory changes of the colon. The appendix is not seen. The small bowel loops are unremarkable. ABDOMINAL WALL: No ventral wall hernia. There is mild generalized anasarca in the subcutaneous tissue. LYMPH NODES: Normal. VASCULAR: Unremarkable. PELVIC VISCERA: The uterus is anteverted. There is no adnexal abnormality. OSSEOUS STRUCTURES: Degenerative disc height narrowing, endplate spurring and facet joint arthrosis at the lumbosacral junction. IMPRESSION: 1. Abdominal ascites. Generalized anasarca. 2. Low-attenuation of liver parenchyma. Hepatomegaly. 3. Cholelithiasis. No bile duct dilatation. 4. Diverticulosis of colon. No diverticulitis. There is diffuse fatty replacement at the submucosa which can be seen with prior chronic inflammatory change of the bowel. There is no acute change of bowel. 5. Right pleural effusion with right basilar dependent atelectasis. Assessment/Plan Assessment/Recommendations: Assessment: Ms. Muse is a 47-year-old female with a recent admission to hospital [place] for alcoholic hepatitis during which time she had an extensive radiographic and serological workup who had been doing relatively well in rehabilitation, however she has been having worsening anasarca over the past 4 days for which she was transferred to [facility] and ultimately admitted. While her LFTs are still elevated her bilirubin is improved from where it was according to her previous records and as she is otherwise doing well I do not feel that steroids are necessary for alcoholic hepatitis at this time. She was not on diuretics as an outpatient and she would likely benefit from being on them and while I agree with IV diuresis she can likely be changed to oral diuretics shortly and sent back to rehab. She only has scant ascites and I therefore don't feel that a paracentesis is warranted. Her imaging here is negative for any biliary ductal dilatation and I therefore feel her abdominal discomfort is from anasarca, hepatomegaly and perhaps PUD. Either way i don't feel that any further diagnostic testing is necessary considering she has been extensively worked up recently and her LFTs abnormalities can be explained by etoh use. Of note, her WBC is significantly elevated, but she doesn't have an obvious source of infection and I would therefore recommend observing off of antibiotics at this time. Recommendations:1 1. Advance to a low sodium diet as tolearted. 2. Follow lytes and replete as needed. 3. Agree with IV diuresis for 1-2 days and would then consider starting low dose lasix 20 mg and aldactone 50mg daily 4. Follow LFTs, but would hold off on steroids for alcoholic hepatitis at this time. 5. Follow up cultures, but as she is afebrile would observe off of antibiotics at this tmie 6. Continue PO PPI. 7. Would get resent blood work and any recent EGDs done at [facility] for review. 8. Once volume status improved consideration should be given to d/c her back to rehab. Will sign off at this time and ask that GI be recontacted for any new GI issues that may arise on this hospitalization. Consult Acknowledgment - Thank you for your consult request.
[2018-01-28 22:00] VITALS: BP 106/60
[2018-01-28 22:40] VITALS: BP 106/60
[2018-01-29] VITALS: BP 106/60
--- NOTE | 2018-01-29 05:18 | PN- Housestaff ---
Kishan Sheth 01/29/18 0516: Subjective Follow-up For: Lower extremity edema Alcoholic hepatitis/alcohol dependence Subjective: Patient seen resting comfortably in the bed. She reports some improvement in her LE edema and her abdominal distension is not bothering her as much as yesterday. She denies fever, chills, nausea, vomiting or diarrhea. She is eager to leave the hospital, and has stated that she will department AMA if need be. Review of Systems Constitutional: Denies: chills, fever, malaise, weakness. Cardiovascular: Reports: peripheral edema. Denies: chest pain. Respiratory: Denies: cough, short of breath. Gastrointestinal: Denies: diarrhea, nausea, vomiting. Objective Last 24 Hrs of Vital Signs/I&O Vital Signs Date Time Temp Pulse Resp B/P B/P Pulse O2 O2 Flow FiO2 Mean Ox Delivery Rate 01/29 0858 95 Room Air Room Air 01/29 0600 98.9 93 20 112/56 96 Room Air 01/29 0000 98.6 86 18 106/60 01/28 2240 98.6 86 18 106/60 96 01/28 2200 98.6 86 20 106/60 01/28 1614 97 Room Air 01/28 1419 98.6 88 20 112/90 94 Room Air Intake & Output 01/29 1600 01/29 0800 01/29 0000 Intake Total 350 250 Output Total Balance 350 250 Intake, Oral 350 250 Physical Exam General Appearance: Alert, Oriented X3, Cooperative, No Acute Distress Cardiovascular: Regular Rate, Normal S1, Normal S2 Lungs: Clear to Auscultation, Normal Air Movement Abdomen: Normal Bowel Sounds Current Medications: Current Medications Sig/[place] Start time Last Medication Dose Route Stop Time Status Admin Acetaminophen 650 MG ONCE ONE 01/28 1630 DC 01/28 PO 01/28 1631 1641 Albuterol Sulfate 3 ML EVERY 4 HRS/AWAKE 01/28 1200 AC 01/29 INH 1229 Folic Acid 1 MG DAILY 01/28 0900 AC 01/29 PO 09 Furosemide 20 MG DAILY 01/29 1004 AC 01/29 PO 1123 Hydroxyzine HCl 50 MG QPM PRN 01/27 2200 AC 01/29 PO 0207 Melatonin 6 MG QPM 01/28 2100 AC 01/28 PO 2239 Methyl Salicylate 1 [place] DAILY PRN 01/28 2245 AC TOP Mirtazapine 15 MG QPM 01/28 2100 AC 01/28 PO 2239 Nicotine 2 MG Q2-3 HRS NEEDED.. 01/28 2345 AC 01/28 PO 2357 Nicotine 2 MG Q6P PRN 01/28 1630 DC 01/28 PO 1909 Omeprazole 40 MG DAILY AC 01/28 0700 AC 01/29 PO 0528 Last 24 Hrs of Lab/Lino Results Last 24 Hrs of Labs/Mics: Laboratory Tests 01/29/18 0824: Anion Gap 6, Estimated GFR > 60, BUN/Creatinine Ratio 12.5, Iron 39, TIBC 229 L , Ferritin 90.7, Total Bilirubin 13.1 H, Direct Bilirubin 11.6 H, AST 75 H, ALT 40, Alkaline Phosphatase 269 H, Total Protein 4.4 L, Albumin 1.8 L, CBC w Diff MAN DIFF ORDERED, RBC 2.93 L, MCV 101.2 H, MCH 34.0 H, MCHC 33.6, RDW 20.9 H, MPV 8.7, Segmented Neutrophils 86 H, Band Neutrophils 3, Lymphocytes 5 L, Monocytes 5, Eosinophils 1, Platelet Estimate VERIFIED BY SMEAR, Anisocytosis 1+, Macrocytic Cells 1+ Microbiology 01/28 1641 NASOPHARYN: Influenza Virus A & B Rapid Smear - COMP Assessment/Plan Assessment: 47 year old female with PMH of alcohol dependence, history of seizures x2 in december after self-detox presented with fluid retention in abdomen to her feet worsening in past 2 weeks. The patient is eager to leave, and intends to return to inpatient alcohol rehab. Will need to arrange this with social work. She was afebrile and is not clinically showing signs of infection, but the WBC was 23.0 today. TIBC was found to be low, remainder of iron studies normal. PROBLEM LIST: 1. Bilateral Lower Extremity Edema/Volume Overload 2. Unexplained leukocytosis 3. Alcoholic Hepatitis/Alcohol Dependencein rehab 4. Trace Ascites Plan: Code: Full Code DVT PPx: ALPS ONLY - INR of 2.00 Diet: NPO at midnight for possible intervention in morning Problem List: 1. Alcoholic hepatitis 2. Coagulopathy 3. Liver failure Pain Ratin Pain Location: ABDOMEN Pain Goal: Pain 4 or less Pain Plan: PER PATHWAY Tomorrow's Labs & Rationales: NONE Renetta Rdz 01/29/18 1159: Attending MD Review Statement Attending Statement Attending MD Statement: examined this patient, discuss w/resident/PA/PRESIDENTIAL SUPPORT SPECIALIST, agreed w/resident/PA/PRESIDENTIAL SUPPORT SPECIALIST, discussed with family, reviewed EMR data (avail), discussed with nursing, discussed with case mgmt, reviewed images, amended to note Attending Assessment/Plan: 47 yo F with history of alcohol abuse went rehab, seizure, gastric ulcer, alcoholic hepatitis, jaundice, fatty liver, hepatomegaly, presented with increasing bilateral LE edema and abdominal distension. Her main concern is bilateral LE edema for 4-5 days and SOB on exertion. No fevers. leukocytosis+, ascites with small pleural effusion and generalised anasarca. No fever. INR 2.0 Patient is here for volume overload and anasarca with hyponatremia with leukocytosis and jaundice with hyperbilirubinemia and elevated INR with alcoholic hepatitis. Monitor off abx. Follow cultures remain negative. GI appreciated with no acute intervention planned. Add diuretics low dose lasix 20 mg and see if bp can tolerate it. Also consider addition of spironolactone if bp stable i/p vs o/p. Monitor her clinically and cosnider abx if spikes fever. SW consult today and see is she can be discharged to [facility]. see is she can be discharged to [facility].
[2018-01-29 06:00] VITALS: BP 112/56
--- NOTE | 2018-01-29 10:20 | Patient Discharge Instructions ---
Discharge Instructions General Discharge Information You were seen/treated for: BILATERAL LEG EDEAMA, ALCOHOLIC HEPATITIS Watch for these problems: IF YOU HAVE ANY OF THESE, PLEASE VISIT YOUR NEAREST EMERGENCY DEPARTMENT: WORSENING LEG PAIN, SWELLING, ABDOMINAL PAIN, NAUSEA, VOMITING, FEVER, CHILLS, LOSS OF CONSICIOUSNESS Special Instructions: -PLEASE VISIT YOUR PRIMARY CARE DOCTOR ONE WEEK AFTER DISCHARGE AND INFORM THEM ABOUT YOUR RECENT STAY AT [facility] -PLEASE VISIT YOUR CAUSTIC OPERATOR ONE WEEK AFTER DISCHARGE Diet Continue normal diet: Yes Activity Activity Self Limited: Yes Acute Coronary Syndrome Inclusion Criteria At DC or during hospital stay patient has or had the following: ACS DIAGNOSIS No Discharge Core Measures Meds if any: Prescribed or Continued at Discharge Meds if any: NOT Prescribed or Continued at Discharge Congestive Heart Failure Inclusion Criteria At DC or during hospital stay patient has or had the following: CHF DIAGNOSIS No Discharge Core Measures Meds if any: Prescribed or Continued at Discharge Meds if any: NOT Prescribed or Continued at Discharge Cerebrovascular accident Inclusion Criteria At HI or during hospital stay patient has or had the following: CVA/TIA Diagnosis No Discharge Core Measures Meds if any: Prescribed or Continued at Discharge Meds if any: NOT Prescribed or Continued at Discharge Venous thromboembolism Inclusion Criteria VTE Diagnosis No VTE Type NONE VTE Confirmed by (Test) NONE Discharge Core Measures - Per Current guidelines, there needs to be overlap - treatment for the first 5 days of Warfarin therapy. - If discharged on Warfarin prior to 5 days of - overlap therapy, the patient will need to be - assessed for post discharge needs including - *Post discharge parental anticoagulation - *Warfarin and/or parental anticoagulation education - *Follow up date to check INR post discharge At least 5 days overlap therapy as Inpatient No Meds if any: Prescribed or Continued at Discharge Note: Overlap Therapy is Warfarin and Anticoagulant Meds if any: NOT Prescribed or Continued at Discharge
[2018-01-29 10:33] LABS: HEMATOCRIT 29.7 % (37-47); MEAN CORPUSCULAR HGB CONC 33.6 G/DL (33.0-37.0); MEAN CORPUSCULAR VOLUME 101.2 FL (81.0-99.0); MEAN PLATELET VOLUME 8.7 FL (7.4-10.4); PLATELET COUNT 261 /CUMM (130-400); RBC DISTRIBUTION WIDTH 20.9 % (11.5-14.5); RED BLOOD CELL CT 2.93 /CUMM (4.20-5.40)
[2018-01-29] MEDS ORDERED: FUROSEMIDE20 M1 PO (11:58)
[2018-01-29 15:47] VITALS: BP 110/60
--- NOTE | 2018-01-29 15:51 | Discharge Summary ---
Visit Information Visit Dates Admission Date: 01/27/18 Discharge Date: 01/29/18 Hospital Course Course Attending Physician: Renetta Rdz MD Primary Care Physician: Patient Has No Primary Care Dr Hospital Course: Patient is a 47 year old female with past medical history significant for alcohol dependence who presented to the ED with a chief complaint of worsening lower extremity edema. Patient came from [facility], where she began treatment 11 days prior to admission. She noticed 4 days prior to admission that she was having worsening lower extremity edema and abdominal distention. Patient was recently worked up at [facility] on 01/04/[address]/ MRI/MRCP/RUQUS demonstrated her hepatomegaly, mild common bile duct narrowing, gall baldder thickening and trace pleural effusion. Patient has a history of 2 seizures in December 2017 when she attempted to self detoxify herself. She had a recent endoscopy with her GI physician demonstrating 5 gastric ulcers, no varices. Patient had a cough on admission that was mildly productive and she stated it was due to sick contact on her [facility]. Otherwise she denied nausea, vomiting, diarrhea, chest pain, shortnes of breath, fevers, chills or urinary symptoms. She was admitted to the general medicine service and a gastroenterology consultation was obtained. She was followed off-antibiotics and off-steroids, medical managment with Lasix was pursued as opposed to paracentesis to help with her fluid accumulation. Since she was slightly hypotensive at 89/69 in the ED, Lasix was started after this improved, without fluid support in the setting of her edema & ascites. Potassium levels were monitored, as was the patient's blood pressure after initiating Lasix and as these were within normal limits the patient was prepared for discharge to [facility] in stable condition. Allergies: Coded Allergies: strawberry (Intermediate, DIARRHEA 01/27/18) Pertinent Lab Results: Duplex US of BLE: No evidence of deep venous thrombosis involving the bilateral lower extremities. Echocardiogram: 1. Normal EF of 70%. 2. Mild right ventricular enlargement. 3. Mild mitral regurgitation. 4. Mild to moderate tricuspid regurgitation. 5. Trace aortic regurgitation. 6. Trace pulmonic regurgitation. CXR: Moderate volume right pleural effusion. Small right basilar infiltrate or atelectasis. CT Abd/Pelvis: 1. Abdominal ascites. Generalized anasarca. 2. Low-attenuation of liver parenchyma. Hepatomegaly. 3. Cholelithiasis. No bile duct dilatation. 4. Diverticulosis of colon. No diverticulitis. There is diffuse fatty replacement at the submucosa which can be seen with prior chronic inflammatory change of the bowel. There is no acute change of bowel. 5. Right pleural effusion with right basilar dependent atelectasis. US Abdomen: Trace ascites in the upper quadrants. Disposition Summary Disposition Principal Diagnosis: Lower extremity edema Additional Diagnosis: Aloholic hepatitis, alcohol dependence Discharge Disposition: [facility] rehab Discharge Instructions General Discharge Information Code Status: Full Code Patient's Diet: Low sodium diet Patient's Activity: As tolerated Follow-Up Instructions/Appts: Patient referred to establish care with PCP and continue her addiction treatment at [facility]. Medications at Discharge Discharge Medications: Continue taking these medications: Multivitamin (Multivitamins) 1 EACH CAPSULE 1 Tablet ORAL DAILY Comments: NOT GIVEN Pantoprazole Sodium (Pantoprazole Sodium) 40 MG TABLET.DR 1 Tablet ORAL DAILY Comments: PRILOSCE GIVEN IN SUBSTITUTION Last Taken: 01/29/18 Time: 530AM Mirtazapine (Remeron) 15 MG TABLET 1 Tablet ORAL Every night Comments: Last Taken: 01/28/18 Time: 1030PM Melatonin (Melatonin) 3 MG TABLET 2 Tablet ORAL Every night Comments: Last Taken: 01/28/18 Time: 1030PM Albuterol Sulfate (Albuterol Sulfate) 1.25 MG/3 ML VIAL.NEB 1 Vial Inhale Solution EVERY 4-6 HOURS as needed for SOB Comments: Last Taken: 01/29/18 Time: 1230pm Ipratropium Merna (Ipratropium Merna) 0.2 MG/ML (0.02 %) SOLUTION 1 Vial Inhale Solution 4 TIMES A DAY Comments: NOT GIVEN Vitamin B Complex/Folic Acid (B-Complex Tablet) 0.4 MG TABLET 1 Tablet ORAL DAILY Cholecalciferol (Vitamin D3) (Vitamin D3) 5,000 UNIT TABLET 1 Tablet ORAL WEEKLY Comments: NOT GIVEN Hydroxyzine Pamoate (Vistaril) 50 MG CAPSULE 1 Capsule ORAL Every night Comments: SUBSTITUTION MEDICATION GIVEN Last Taken: 01/29/18 Time: 207AM Acetaminophen (Tylenol Arthritis) 650 MG TABLET.ER 1 Tablet ORAL THREE TIMES DAILY as needed for PAIN Comments: Last Taken: 01/29/18 Time: 330pm Nadolol (Nadolol) 20 MG TABLET 1 Tablet ORAL Every Morning Comments: NOT GIVEN Cyanocobalamin (Vitamin B-12) 1,000 MCG TABLET 1 Tablet ORAL DAILY Days = 0 Comments: NOT GIVEN Start taking the following new medications: Furosemide (Furosemide) 20 MG TABLET 1 Tablet ORAL DAILY Qty = 30 No Refills Comments: Last Taken: 01/29/18 Time: 1130AM Copies To: [facility] Attending MD Review Statement Documenting Attending: Renetta Rdz MD Other Findings: 47 yo F with history of alcohol abuse went rehab, seizure, gastric ulcer, alcoholic hepatitis, jaundice, fatty liver, hepatomegaly, presented with increasing bilateral LE edema and abdominal distension. Her main concern is bilateral LE edema for 4-5 days and SOB on exertion. No fevers. Patient is here for volume overload and anasarca with hyponatremia with leukocytosis and jaundice with hyperbilirubinemia and elevated INR with alcoholic hepatitis. Monitor off abx. Follow cultures remain negative. GI appreciated with no acute intervention planned. Added diuretics low dose lasix 20 mg and see if bp can tolerate it. Also consider addition of spironolactone if bp stable i/p vs o/p. SW consult and she discharged to [facility] in stable condition. FOLLOW UP Gastroenterology in 2 weeks
--- NOTE | 2018-01-29 18:21 | ECHOCARDIOGRAM REPORT ---
JULIO CESAR THORNTON Age: 47 : 1970 Gender: F Exam Date: 01/28/2018 20:17 Exam Location: [address] [place] [address] A Ht (in): 68 Wt (lb): 189 BSA: 2.05 BP: 110 / 58 Ordering Physician: Jessie Fernando MD Referring Physician: Camilo Mayer MD, PhD Technologist: Anup Lee [facility] Room Number: [id number] Indications: Heart failure, unspecified Rhythm: Sinus Technical Quality: good FINDINGS Left Ventricle Normal left ventricular size, wall thickness and systolic function with no obvious regional wall motion abnormalities. Normal left ventricular diastolic filling pattern for age. The ejection fraction is visually estimated at 70%. Right Ventricle The right ventricle is mildly enlarged with normal function. Right Atrium The right atrium is normal in size. Left Atrium The left atrium is normal in size. The interatrial septum is intact. Mitral Valve The mitral valve is normal in structure and function. There is mild mitral regurgitation. Aortic Valve Structurally normal aortic valve without significant sclerosis or stenosis. There is trace aortic regurgitation. Tricuspid Valve The tricuspid valve is normal in structure and function. There is mild to moderate tricuspid regurgitation. Pulmonary artery systolic pressure is normal. Pulmonic Valve Structurally normal pulmonic valve. There is trace pulmonic regurgitation. Pericardium Normal pericardium without effusion. No pleural effusion. Great Vessels Normal aortic root dimension. The aortic arch and great vessels are well seen and are normal. CONCLUSIONS 1. Normal EF of 70%. 2. Mild right ventricular enlargement. 3. Mild mitral regurgitation. 4. Mild to moderate tricuspid regurgitation. 5. Trace aortic regurgitation. 6. Trace pulmonic regurgitation. Camilo Mayer M.D. (Electronically Signed) Final Date: 29 January 2018 18:20 MEASUREMENTS (Male / Female) Normal Values 2D ECHO LV Diastolic Diameter PLAX 4.7 cm 4.2 - 5.9 / 3.9 - 5.3 cm LV Systolic Diameter PLAX 2.8 cm 2.1 - 4.0 cm LV Fractional Shortening PLAX 40.4 % 25 - 46 % LV Ejection Fraction 2D Teich 71.1 % IVS Diastolic Thickness 0.8 cm LVPW Diastolic Thickness 0.8 cm LV Relative Wall Thickness 0.3 LVOT Diameter 2.1 cm Aortic Root Diameter 2.9 cm LA Systolic Diameter LX 3.4 cm 3.0 - 4.0 / 2.7 - 3.8 cm LA Volume 53.0 cm 18 - 58 / 22 - 52 cm DOPPLER AV Peak Velocity 161.0 cm/s AV Peak Gradient 10.4 mmHg AV Mean Velocity 125.0 cm/s AV Mean Gradient 7.0 mmHg AV Velocity Time Integral 28.0 cm LVOT Peak Velocity 116.0 cm/s LVOT Peak Gradient 5.4 mmHg LVOT Mean Velocity 78.0 cm/s LVOT Mean Gradient 3.0 mmHg LVOT Velocity Time Integral 20.8 cm LVOT Stroke Volume 72.0 cm AV Area Cont Eq vti 2.6 cm AV Area Cont Eq pk 2.5 cm MV Peak Velocity 99.8 cm/s MV Peak Gradient 4.0 mmHg MV Mean Velocity 63.0 cm/s MV Mean Gradient 2.0 mmHg Mitral E Point Velocity 76.9 cm/s Mitral A Point Velocity 68.5 cm/s Mitral E to A Ratio 1.1 MV PHT Velocity 76.9 cm/s MV Deceleration Clayton 448.5 cm/s MV Pressure Half Time 51.4 ms MV Area PHT 4.3 cm TV Peak Velocity 261.7 cm/s TV Peak E Velocity 40.9 cm/s TV Peak A Velocity 41.9 cm/s TV E to A Ratio 1.0 Right Atrial Pressure 5.0 mmHg PV Peak Velocity 170.0 cm/s PV Peak Gradient 11.6 mmHg PV Mean Velocity 111.0 cm/s PV Mean Gradient 6.0 mmHg PV Velocity Time Integral 26.5 cm LV E' Lateral Velocity 16.4 cm/s Mitral E to LV E' Lateral Ratio 4.7 LV E' Septal Velocity 18.1 cm/s Mitral E to LV E' Septal Ratio 4.2
== END 2018-01-29 16:42 | DRG 433 ==
LOC: ERH 16:34 → ERHI 19:10 → 2NA 19:10 → ENRESERV 20:13 → ENTRNSPT 21:04 → 2NA 21:14 → CMPTRNSPT 21:32 → 2NA 01-28 08:06
PROVIDERS: Internal Medicine; Physician Assistant; Student in an Organized Health Care Education/Training Program
DX: K70.11 Alcoholic hepatitis with ascites (principal); D68.9 Coagulation defect, unspecified; E87.1 Hypo-osmolality and hyponatremia; R60.0 Localized edema; K21.9 Gastro-esophageal reflux disease without esophagitis; F10.20 Alcohol dependence, uncomplicated; Y90.0 Blood alcohol level of less than 20 mg/100 ml; D72.829 Elevated white blood cell count, unspecified; K70.0 Alcoholic fatty liver; D53.9 Nutritional anemia, unspecified; W18.30XA Fall on same level, unspecified, initial encounter; Y92.238 Other place in hospital as the place of occurrence of the external cause; E83.51 Hypocalcemia
CPT/HCPCS: 2NAP; 36592; 71046; 74177; 80307; 81001; 82436; 87040; 87070; 87071; 87086; 87147; 87449; 87450; 87804; 87804-59; 93005; 93010; 93306; 93970; G0480; J0456; J0696; J1940; J3490; J7040